=== PATIENT | female | born 1990 | race Caucasian/White ===

== ENCOUNTER 2019-12-26 15:48 | Inpatient (IN) | payer BC, OTHER ==
[2019-12-26] MEDS ORDERED: BUTORPHANOL 1 MG/ML 1 ML VIAL IV PRN (15:53)
[2019-12-26 16:30] LABS: Glucose,Whole Blood 118 mg/dL (75-99)
[2019-12-26] MEDS: DINOPROSTONE 10 MG INSERT.ER VAGINAL ONE ×2 (17:00→17:03)
[2019-12-26] MEDS: INSULIN ASPART (NovoLOG) 100 UNIT/ML VIAL SQ SCH (18:34)
[2019-12-26 18:35] LABS: Glucose,Whole Blood 128 mg/dL (75-99)
[2019-12-27] MEDS ORDERED: CARBOPROST TROMETHAMINE 250 MCG/ML 1 ML AMP IM PRN (05:29)
[2019-12-27] MEDS ORDERED: METHYLERGONOVINE 0.2 MG/ML 1 ML AMP IM PRN (05:29)
[2019-12-27] MEDS ORDERED: OXYTOCIN 10 UNIT/ML 1 ML VIAL IM PRN (05:29)
[2019-12-27] MEDS ORDERED: TERBUTALINE 1 MG/ML VIAL SQ PRN (05:29)
[2019-12-27] MEDS ORDERED: LIDOCAINE 0.5% (PF) 5 MG/ML (50 ML SDV) SQ PRN (05:29)
[2019-12-27] MEDS ORDERED: OXYTOCIN 30 UNITS/500 ML NS 30 UNIT in SALINE 1 500ML.BAG IV SCH (05:30)
[2019-12-27 05:53] LABS: Glucose,Whole Blood 105 mg/dL (75-99)
[2019-12-27] MEDS: LACTATED RINGERS 1,000 ML IV SCH ×3 (06:06→16:04)
[2019-12-27 06:22] LABS: Basophils % (A) 0 %; Eosinophils # (A) 0.1 k/uL (0-0.7); Eosinophils % (A) 1 %; HCT 38.4 % (34.0-46.0); HGB 12.6 gm/dL (11.4-16.0); Hypochromasia Slight; Lymphocytes # (A) 1.6 k/uL (1.0-4.8); Lymphocytes % (A) 19 %; MCH 29.8 pg (25.0-35.0); MCHC 32.8 g/dL (31.0-37.0); MCV 90.8 fL (80.0-100.0); Monocytes # (A) 0.4 k/uL (0-1.0); Monocytes % (A) 5 %; Neutrophils # (A) 6.4 k/uL (1.3-7.7); Neutrophils % (A) 74 %; Platelet Count 226 k/uL (150-450); RBC 4.22 m/uL (3.80-5.40); RDW 15.3 % (11.5-15.5); WBC 8.7 k/uL (3.8-10.6)
[2019-12-27 07:58] LABS: Glucose,Whole Blood 112 mg/dL (75-99)
[2019-12-27 10:02] LABS: Glucose,Whole Blood 96 mg/dL (75-99)
[2019-12-27 12:24] LABS: Glucose,Whole Blood 104 mg/dL (75-99)
[2019-12-27] MEDS ORDERED: SODIUM CHLORIDE 0.9% 100 ML BAG ONE (12:35)
[2019-12-27] MEDS ORDERED: fentaNYL (PF) 50 MCG/ML 5 ML AMP ONE (12:35)
[2019-12-27] MEDS ORDERED: ROPIVACAINE 5MG/ML 20ML VIAL ONE (12:35)
[2019-12-27 14:41] LABS: Glucose,Whole Blood 101 mg/dL (75-99)
[2019-12-27 16:07] LABS: Glucose,Whole Blood 97 mg/dL (75-99)
[2019-12-27 17:16] LABS: Glucose,Whole Blood 91 mg/dL (75-99)
[2019-12-27] MEDS ORDERED: SIMETHICONE 80 MG CHEWABLE PO PRN (20:07)
[2019-12-27] MEDS ORDERED: ZOLPIDEM 5 MG TAB PO PRN (20:07)
[2019-12-27] MEDS ORDERED: LANOLIN CREAM 5 GM TUBE TOPICAL PRN (20:07)
[2019-12-27] MEDS ORDERED: BENZOCAINE/MENTHOL SPRAY 1 GM/SPRAY AEROSOL TOPICAL PRN (20:07)
[2019-12-27] MEDS ORDERED: HYDROCORTISONE 2.5% RECTAL CREAM 30 GM TUBE RECTAL PRN (20:07)
[2019-12-27] MEDS ORDERED: diphenhydrAMINE 50 MG/ML 1 ML VIAL IVP PRN ×2 (20:07)
[2019-12-27] MEDS ORDERED: diphenhydrAMINE 50 MG CAP PO PRN (20:07)
[2019-12-27] MEDS ORDERED: diphenhydrAMINE 25 MG CAP PO PRN (20:07)
[2019-12-27] MEDS ORDERED: ACETAMINOPHEN TAB 325 MG TAB PO PRN (20:07)
[2019-12-27] MEDS ORDERED: OXYTOCIN 20 UNITS/1000 ML NS 1,000 ML IV SCH (20:15)
[2019-12-27] MEDS: IBUPROFEN 600 MG TAB PO PRN (22:16)
[2019-12-27] MEDS: INSULIN ASPART (NovoLOG) 100 UNIT/ML VIAL SQ SCH (23:46)
[2019-12-28 06:52] LABS: Basophils % (A) 0 %; Eosinophils # (A) 0.1 k/uL (0-0.7); Eosinophils % (A) 1 %; HCT 27.5 % (34.0-46.0); Lymphocytes # (A) 1.2 k/uL (1.0-4.8); Lymphocytes % (A) 10 %; MCH 30.5 pg (25.0-35.0); MCV 89.9 fL (80.0-100.0); Mean Platelet Volume 7.6; Monocytes # (A) 0.6 k/uL (0-1.0); Monocytes % (A) 5 %; Neutrophils # (A) 9.9 k/uL (1.3-7.7); Neutrophils % (A) 84 %; Platelet Count 214 k/uL (150-450); RBC 3.06 m/uL (3.80-5.40); RDW 15.4 % (11.5-15.5); WBC 11.8 k/uL (3.8-10.6)
[2019-12-28 06:58] LABS: HGB 9.3 gm/dL (11.4-16.0)
--- NOTE | 2019-12-28 07:42 | P.HPOB ---
History of Present Illness H&P Date: 12/27/19 Chief Complaint: Induction of labor 29-year-old presents at 37 weeks and 6 days for induction of labor. The induction was recommended by maternal medicine. They have been following her with BPP and Dopplers weekly for her gestational diabetes on insulin. This week all of her Doppler levels were elevated and he recommended she be delivered before 38 weeks. Her cervix is 1 cm dilated, 70% effaced, and -2 station. She is not crow. heart tones 135 with moderate variability and reactive. Review of Systems All systems: negative Constitutional: Denies chills, Denies fever Eyes: denies blurred vision, denies pain Ears, nose, mouth and throat: Denies headache, Denies sore throat Cardiovascular: Denies chest pain, Denies shortness of breath Respiratory: Denies cough Gastrointestinal: Denies abdominal pain, Denies diarrhea, Denies nausea, Denies vomiting Genitourinary: Denies dysuria, Denies hematuria Musculoskeletal: Denies myalgias Integumentary: Denies pruritus, Denies rash Neurological: Denies numbness, Denies weakness Psychiatric: Denies anxiety, Denies depression Endocrine: Denies fatigue, Denies weight change Past Medical History Past Medical History: No Reported History Additional Past Medical History / Comment(s): Obstetric history: This is her first and she's had care with me since the first trimester. Blood type is AB+, antibodies negative, rubella immune, hepatitis B negative, RPR nonreactive, GBS negative. She's been followed for gestational diabetes on insulin with maternal- medicine. She is also had some intermittent elevated Dopplers but this weekly Dopplers were elevated in all levels. History of Any Multi-Drug Resistant Organisms: None Reported Additional Past Surgical History / Comment(s): [place] teeth extraction Past Anesthesia/Blood Transfusion Reactions: No Reported Reaction Past Psychological History: No Psychological Hx Reported Smoking Status: Never smoker - Past Family History Father Family Medical History: Asthma Medications and Allergies Home Medications Medication Instructions Recorded Confirmed Type Insulin Aspart [NovoLOG Flexpen] 5 units SQ TID 12/26/19 12/26/19 History Allergies Allergy/AdvReac Type Severity Reaction Status Date / Time No Known Allergies Allergy Verified 12/26/19 15:50 Exam Osteopathic Statement: *. No significant issues noted on an osteopathic structural exam other than those noted in the History and Physical/Consult. Vital Signs Temp Pulse Resp BP 12/28/19 03:37 97.7 F 117 H 18 127/70 12/28/19 00:00 98.7 F 122 H 16 123/88 12/27/19 22:05 108 H 16 140/81 12/27/19 21:35 100 16 146/75 12/27/19 21:05 108 H 16 142/82 12/27/19 20:50 111 H 16 132/71 12/27/19 20:35 120 H 16 143/81 12/27/19 20:20 120 H 16 150/67 12/27/19 20:05 98.2 F 129 H 16 129/58 Intake and Output 12/27/19 12/28/19 12/28/19 22:59 06:59 14:59 Output Total 200 Balance -200 Output: Urine 200 Other: # Voids 2 Heart: Regular rate and rhythm Lungs: Clear to auscultation bilaterally Abdomen: Soft, nontender Extremities: Negative Homans sign Results Result Diagrams: 12/28/19 06:30 Abnormal Lab Results - Last 24 Hours (Table) 12/27/19 12/27/19 12/27/19 Range/Units 07:56 12:17 14:30 WBC (3.8-10.6) k/uL RBC (3.80-5.40) m/uL Hgb (11.4-16.0) gm/dL Hct (34.0-46.0) % Neutrophils # (1.3-7.7) k/uL POC Glucose (mg/dL) 112 H 104 H 101 H (75-99) mg/dL 12/28/19 Range/Units 06:30 WBC 11.8 H (3.8-10.6) k/uL RBC 3.06 L (3.80-5.40) m/uL Hgb 9.3 L D (11.4-16.0) gm/dL Hct 27.5 L (34.0-46.0) % Neutrophils # 9.9 H (1.3-7.7) k/uL POC Glucose (mg/dL) (75-99) mg/dL Assessment and Plan (1) Gestational diabetes Current Visit: Yes Status: Acute Code(s): O24.419 - GESTATIONAL DIABETES MELLITUS IN , UNSP CONTROL SNOMED Code(s): 77663947 (2) Abnormal placenta affecting management of mother Current Visit: Yes Status: Acute Code(s): O43.90 - UNSPECIFIED PLACENTAL DISORDER, UNSPECIFIED TRIMESTER SNOMED Code(s): 24471822 Plan: 1. Induction of labor with amniotomy and Pitocin 2. Monitor blood sugar levels 3. Anticipate normal vaginal delivery
--- NOTE | 2019-12-28 07:44 | P.PROBDLV ---
Vaginal Delivery Note - . Vaginal Delivery Note: 29-year-old presents at 37 weeks and 6 days for induction of labor. The induction was recommended by maternal medicine. They have been following her with BPP and Dopplers weekly for her gestational diabetes on insulin. This week all of her Doppler levels were elevated and he recommended she be delivered before 38 weeks. Her cervix is 1 cm dilated, 70% effaced, and -2 station. She is not crow. heart tones 135 with moderate variability and reactive. Pitocin augmentation was started. Amniotomy performed at 7:20 AM and clear to blood-tinged fluid was noted. She progressed about 3 cm and had some Stadol was comfortable but then when she was 4 cm and did get an epidural. She was comfortable and completely dilated by 1820. She pushed, delivered a viable male infant over intact perineum under epidural anesthesia at 1949. Head del ivered OA, nuchal cord 1 easily reduced, anterior shoulder delivered gentle downward guidance. The posterior shoulder and rest of body. Nose and mouth bulb suctioned, cord clamped and cut, placed on mother's abdomen. Apgars 9, 9, weight 6 lbs. 6 oz. Placenta delivered spontaneously, intact with three- vessel cord at 195. Vagina, cervix, and perineum were inspected. Second- degree midline laceration was repaired with 3-0 Vicryl. Estimated blood loss 300 mL. Mother and baby in stable condition.
--- NOTE | 2019-12-28 07:45 | P.PNOBGVD ---
Subjective - Subjective Principal diagnosis: Status post total vaginal delivery day #1 Interval history: Patient seen and examined. Denies nausea, vomiting, chest pain, shortness of breath or any calf pain. Patient reports: Reports appetite normal, Reports voiding normally, Reports pain well controlled, Reports ambulating normally : doing well Objective - Latest Vital Signs Latest vital signs: Vital Signs Temp Pulse Resp BP 12/28/19 03:37 97.7 F 117 H 18 127/70 12/28/19 00:00 98.7 F 122 H 16 123/88 12/27/19 22:05 108 H 16 140/81 12/27/19 21:35 100 16 146/75 12/27/19 21:05 108 H 16 142/82 12/27/19 20:50 111 H 16 132/71 12/27/19 20:35 120 H 16 143/81 12/27/19 20:20 120 H 16 150/67 12/27/19 20:05 98.2 F 129 H 16 129/58 Intake and Output 12/27/19 12/28/19 12/28/19 22:59 06:59 14:59 Output Total 200 Balance -200 Output: Urine 200 Other: # Voids 2 - Exam Lungs: bilateral: normal Chest: Normal S1, Normal S2 Extremities: Present: normal Abdomen: Present: normal appearance, soft Uterus: Present: normal, firm - Labs Labs: Abnormal Lab Results - Last 24 Hours (Table) 12/27/19 12/27/19 12/27/19 Range/Units 07:56 12:17 14:30 WBC (3.8-10.6) k/uL RBC (3.80-5.40) m/uL Hgb (11.4-16.0) gm/dL Hct (34.0-46.0) % Neutrophils # (1.3-7.7) k/uL POC Glucose (mg/dL) 112 H 104 H 101 H (75-99) mg/dL 12/28/19 Range/Units 06:30 WBC 11.8 H (3.8-10.6) k/uL RBC 3.06 L (3.80-5.40) m/uL Hgb 9.3 L D (11.4-16.0) gm/dL Hct 27.5 L (34.0-46.0) % Neutrophils # 9.9 H (1.3-7.7) k/uL POC Glucose (mg/dL) (75-99) mg/dL Assessment and Plan (1) Gestational diabetes Current Visit: Yes Status: Resolved Code(s): O24.419 - GESTATIONAL DIABETES MELLITUS IN , UNSP CONTROL SNOMED Code(s): 78701534 (2) Abnormal placenta affecting management of mother Current Visit: Yes Status: Resolved Code(s): O43.90 - UNSPECIFIED PLACENTAL DISORDER, UNSPECIFIED TRIMESTER SNOMED Code(s): 90500187 (3) Status post normal vaginal delivery Current Visit: Yes Status: Acute Code(s): GGF9006 - SNOMED Code(s): 582193140 Plan: 1. care 2. consult
[2019-12-28] MEDS: SENNOSIDES-DOCUSATE SODIUM 1 EACH TAB PO SCH ×2 (07:48→20:08)
[2019-12-28] MEDS: IBUPROFEN 600 MG TAB PO PRN ×2 (07:48→20:28)
[2019-12-28 16:40] VITALS: RESP 16
[2019-12-29] MEDS: SENNOSIDES-DOCUSATE SODIUM 1 EACH TAB PO SCH (08:04)
--- NOTE | 2019-12-29 08:31 | P.DS ---
Providers Date of admission: 12/26/19 15:48 Expected date of discharge: 12/29/19 Attending physician: Justina Rai Primary care physician: Stated None - Discharge Diagnosis(es) (1) Gestational diabetes Current Visit: Yes Status: Resolved (2) Abnormal placenta affecting management of mother Current Visit: Yes Status: Resolved (3) Status post normal vaginal delivery Current Visit: Yes Status: Acute Hospital Course: Patient presented for induction of labor. She underwent a normal vaginal delivery. Her course was uncomplicated. She'll be discharged home day #1 in stable condition to follow-up with me in 6 weeks. Plan - Discharge Summary New Discharge Prescriptions: New Ibuprofen [Motrin] 600 mg PO Q6HR PRN #30 tab PRN Reason: Mild Pain Or Fever >= 100.5 Discontinued Insulin Aspart [NovoLOG Flexpen] 5 units SQ TID Discharge Medication List Ibuprofen [Motrin] 600 mg PO Q6HR PRN #30 tab 12/29/19 [Rx] Follow up Appointment(s)/Referral(s): Justina Rai DO [Doctor of Osteopathic Medicine] - 6 Weeks Discharge Disposition: HOME SELF-CARE
[2019-12-29 09:49] VITALS: BP 135/83; PULSE 103; TEMP 98.4
[2019-12-29] MEDS: IBUPROFEN 600 MG TAB PO PRN (11:13)
== END 2019-12-29 11:50 | disposition home or self-care (01) | DRG 807 ==
LOC: 4FBP 15:48
PROVIDERS: ADMIT Obstetrics & Gynecology; ATTEND Obstetrics & Gynecology
PROC: 3E0R3BZ Introduction of Anesthetic Agent into Spinal Canal, Percutaneous Approach (ICD-10-PCS; principal; 2019-12-27)
PROC: 10907ZC Drainage of Amniotic Fluid, Therapeutic from Products of Conception, Via Natural or Artificial Opening (ICD-10-PCS; principal; 2019-12-27)
PROC: 00HU33Z Insertion of Infusion Device into Spinal Canal, Percutaneous Approach (ICD-10-PCS; principal; 2019-12-27)
PROC: 3E033VJ Introduction of Other Hormone into Peripheral Vein, Percutaneous Approach (ICD-10-PCS; principal; 2019-12-27)
PROC: 10E0XZZ Delivery of Products of Conception, External Approach (ICD-10-PCS; principal; 2019-12-27)
DX: O24.424 Gestational diabetes mellitus in childbirth, insulin controlled (principal); Z37.0 Single live birth; O69.81X0 Labor and delivery complicated by cord around neck, without compression, not applicable or unspecified; Z3A.37 37 weeks gestation of pregnancy; Z82.5 Family history of asthma and other chronic lower respiratory diseases
CPT/HCPCS: 85025; 86850; 86900; 86901; 88307

== ENCOUNTER 2020-03-24 17:45 | Emergency (ER) | payer BC ==
[2020-03-24] MEDS ORDERED: SODIUM CHLORIDE 0.9% 1,000 ML IV ONE (18:32)
[2020-03-24 19:01] LABS: Basophils % (A) 1 %; Eosinophils # (A) 0.3 k/uL (0-0.7); Eosinophils % (A) 4 %; HCT 35.8 % (34.0-46.0); HGB 11.9 gm/dL (11.4-16.0); Lymphocytes # (A) 1.3 k/uL (1.0-4.8); Lymphocytes % (A) 21 %; MCH 27.8 pg (25.0-35.0); MCHC 33.3 g/dL (31.0-37.0); MCV 83.5 fL (80.0-100.0); Mean Platelet Volume 7.2; Monocytes # (A) 0.3 k/uL (0-1.0); Monocytes % (A) 5 %; Neutrophils # (A) 4.5 k/uL (1.3-7.7); Neutrophils % (A) 69 %; Platelet Count 267 k/uL (150-450); RBC 4.28 m/uL (3.80-5.40); WBC 6.5 k/uL (3.8-10.6)
[2020-03-24 19:18] LABS: ALT 20 U/L (4-34); AST 59 U/L (14-36); African American GFR (CKD) >90 (>60 ml/min/1.73 sqM); Albumin 4.3 g/dL (3.5-5.0); Alkaline Phosphatase 88 U/L (38-126); Anion Gap 8 mmol/L; Blood Urea Nitrogen 16 mg/dL (7-17); Calcium 9.6 mg/dL (8.4-10.2); Carbon Dioxide 25 mmol/L (22-30); Chloride 106 mmol/L (98-107); Glucose 108 mg/dL (74-99); Magnesium 1.8 mg/dL (1.6-2.3); Non-African American GFR(CKD) >90 (>60 ml/min/1.73 sqM); Potassium 4.3 mmol/L (3.5-5.1); Sodium 139 mmol/L (137-145); Total Bilirubin 0.6 mg/dL (0.2-1.3); Total Protein 7.1 g/dL (6.3-8.2)
[2020-03-24 19:50] LABS: D-Dimer 0.35 mg/L FEU (<0.60); INR 1.2 (<1.2); Partial Thromboplastin Time 23.7 sec (22.0-30.0); Prothrombin Time 12.5 sec (9.0-12.0)
--- NOTE | 2020-03-24 19:58 | XR ---
EXAMINATION TYPE: XR chest 2V DATE OF EXAM: 03/24/2020 COMPARISON: 12/20/2018 HISTORY: Chronic cough TECHNIQUE: 2 views FINDINGS: Heart and mediastinum are normal. Lungs are clear. Diaphragm is normal. Bony thorax appears normal. IMPRESSION: Normal chest. No change.
--- NOTE | 2020-03-24 20:06 | ED ---
Chest Pain HPI - General Chief Complaint: Chest Pain Stated Complaint: Chest pain Time Seen by Provider: 03/24/20 18:13 Source: patient Mode of arrival: ambulatory Limitations: no limitations - History of Present Illness Initial Comments: Patient is a 29-year-old female who presents to emergency department with epigastric chest pain for the past several months. Reports that the symptoms have been present ever since she gave in December. States the pain is most present at night when she lays down to sleep. Will wake her up from sleep. Denies any relation to food intake. No ripping or tearing sensation to her back. Has not taken any medications for her symptoms. Denies provocation with food intake. No fevers or chills. Admits to nausea without vomiting. Denies any changes in her bowel or bladder habits. Denies history of DVT or PE. No calf pain or swelling. No family history of premature cardiac . Does admit to associated shortness of breath. No other alleviating, precipitating or modifying factors - Related Data Previous Rx's Medication Instructions Recorded Ibuprofen [Motrin] 600 mg PO Q6HR PRN #30 tab 12/29/19 Allergies Allergy/AdvReac Type Severity Reaction Status Date / Time No Known Allergies Allergy Verified 12/26/19 15:50 Review of Systems ROS Statement: Those systems with pertinent positive or pertinent negative responses have been documented in the HPI. ROS Other: All systems not noted in ROS Statement are negative. EKG Findings - EKG Comments: EKG Findings:: EKG demonstrates a normal sinus rhythm with a ventricular rate of 84. WV interval 156. QRS 92. QTC of 420. Q wave in lead 3. No acute ST segment elevations or depressions. No signs of Nhqlj-Eddftfnht-Czzbf or Brugada syndrome. Past Medical History Past Medical History: No Reported History Additional Past Medical History / Comment(s): Obstetric history: This is her first and she's had care with me since the first trimester. Blood type is AB+, antibodies negative, rubella immune, hepatitis B negative, RPR nonreactive, GBS negative. She's been followed for gestational diabetes on insulin with maternal- medicine. She is also had some intermittent elevated Dopplers but this weekly Dopplers were elevated in all levels. History of Any Multi-Drug Resistant Organisms: None Reported Additional Past Surgical History / Comment(s): [place] teeth extraction Past Anesthesia/Blood Transfusion Reactions: No Reported Reaction Past Psychological History: No Psychological Hx Reported Smoking Status: Former smoker Past Alcohol Use History: Rare Past Drug Use History: None Reported - Past Family History Father Family Medical History: Asthma General Exam Limitations: no limitations General appearance: alert, in no apparent distress Head exam: Present: atraumatic, normocephalic, normal inspection Eye exam: Present: normal appearance, PERRL, EOMI. Absent: scleral icterus, conjunctival injection, periorbital swelling ENT exam: Present: normal exam, mucous membranes moist Neck exam: Present: normal inspection. Absent: tenderness, meningismus, lymphadenopathy Respiratory exam: Present: normal lung sounds bilaterally. Absent: respiratory distress, wheezes, rales, rhonchi, stridor Cardiovascular Exam: Present: regular rate, normal rhythm, normal heart sounds. Absent: systolic murmur, diastolic murmur, rubs, gallop, clicks GI/Abdominal exam: Present: soft, tenderness (epigastric), normal bowel sounds. Absent: distended, guarding, rebound, rigid Extremities exam: Present: normal inspection, full ROM, normal capillary refill. Absent: tenderness, pedal edema, joint swelling, calf tenderness Back exam: Present: normal inspection Neurological exam: Present: alert, oriented X3, CN II-XII intact Psychiatric exam: Present: normal affect, normal mood Skin exam: Present: warm, dry, intact, normal color. Absent: rash Course Vital Signs 03/24/20 03/24/20 03/24/20 17:48 21:00 21:43 Temperature 97.9 F 98.2 F 98.0 F Pulse Rate 92 84 89 Respiratory 18 19 18 Rate Blood Pressure 147/97 122/84 126/80 O2 Sat by Pulse 100 98 98 Oximetry Chest Pain MDM - MDM Upon arrival patient is placed into room 10. A thorough history and physical exam was performed. As patient is reporting to chest pain we did place on continuous pulse ox and cardiac monitoring. 12-lead EKG was performed. Laboratory studies were conducted. D-dimer is negative at 0.35. Troponin is negative. HCG is negative. Chest x-ray demonstrates no acute findings. Ultrasound is performed which demonstrates multiple gallstones without signs of cholecystitis. I did discuss results with the patient. I recommended a low-fat diet. Patient was given follow-up information for Dr. wilson. Call to make an appointment. Return to the emergency room for any new or worsening symptoms. Patient was in agreement with this plan and discharged home stable condition Disposition Clinical Impression: Epigastric pain, Gallstones Disposition: HOME SELF-CARE Condition: Stable Instructions (If sedation given, give patient instructions): Gallstones (ED) Additional Instructions: Please follow-up with your primary care doctor. Return to the emergency room for any new or worsening symptoms. I did recommend that you see the surgeon in regards to your gallstones Is patient prescribed a controlled substance at d/c from ED?: No Referrals: Wilbert Lam DO [Primary Care Provider] - 1-2 days Oral Wilson DO [Doctor of Osteopathic Medicine] - 1-2 days Time of Disposition: 21:13
--- NOTE | 2020-03-24 20:49 | US ---
EXAMINATION TYPE: US gallbladder DATE OF EXAM: 03/24/2020 COMPARISON: NONE CLINICAL HISTORY: abd pain. EXAM MEASUREMENTS: Liver Length: 15.0 cm Gallbladder Wall: 0.3 cm CBD: 0.3 cm Right Kidney: 13.1 x 4.3 x 5.2 cm Pancreas: Tail obscured by overlying bowel gas Liver: wnl Gallbladder: mobile stones, no wall thickening Evidence for sonographic Dominguez's sign: no CBD: wnl Right Kidney: Inferior pole obscured by overlying bowel gas, measures large IMPRESSION: There are multiple small gallstones. No dilated ducts. No focal liver defect.
[2020-03-24 21:53] VITALS: BP 126/80; PULSE 89; RESP 18; TEMP 98
== END 2020-03-24 21:43 | disposition home or self-care (01) ==
LOC: EC 17:45
DX: K80.20 Calculus of gallbladder without cholecystitis without obstruction (principal); Z87.891 Personal history of nicotine dependence
CPT/HCPCS: 36415; 71046; 76705; 80053; 81025; 83690; 83735; 84484; 85025; 85379; 85610; 85730; 93005; 96360; 96361; 99285

== ENCOUNTER 2022-09-24 15:45 | Inpatient (IN) | payer BC ==
[2022-09-24 17:15] LABS: Appearance,Urine Clear (Clear); Bilirubin,Urine Negative (Negative); Blood,Urine Negative (Negative); Color,Urine Light Yellow; Glucose,Urine (UA) Negative (Negative); Ketones,Urine Negative (Negative); Leukocyte Esterase,Urine Negative (Negative); Nitrite,Urine Negative (Negative); Protein,Urine Negative (Negative); Specific Gravity,Urine 1.007 (1.001-1.035); Urobilinogen,Urine <2.0 mg/dL (<2.0)
[2022-09-24 17:33] LABS: Creatinine,Urine Random 33.2 mg/dL; Protein/Creatinine Ratio,Urine 0.361
[2022-09-24 17:41] LABS: Basophils % (A) 0 %; Eosinophils # (A) 0.1 k/uL (0-0.7); Eosinophils % (A) 1 %; HCT 37.2 % (34.0-46.0); HGB 12.2 gm/dL (11.4-16.0); Lymphocytes # (A) 1.6 k/uL (1.0-4.8); Lymphocytes % (A) 18 %; MCH 29.1 pg (25.0-35.0); MCHC 32.7 g/dL (31.0-37.0); MCV 88.9 fL (80.0-100.0); Monocytes # (A) 0.4 k/uL (0-1.0); Monocytes % (A) 4 %; Neutrophils # (A) 6.8 k/uL (1.3-7.7); Neutrophils % (A) 76 %; Platelet Count 208 k/uL (150-450); RBC 4.19 m/uL (3.80-5.40); RDW 15.5 % (11.5-15.5)
[2022-09-24 17:51] LABS: ALT 15 U/L (4-34); AST 18 U/L (14-36); African American GFR (CKD) >90 (>60 ml/min/1.73 sqM); Blood Urea Nitrogen 8 mg/dL (7-17); LDH 163 U/L (120-246); Non-African American GFR(CKD) >90 (>60 ml/min/1.73 sqM); Uric Acid 3.3 mg/dL (3.7-7.4)
[2022-09-24] MEDS ORDERED: LABETALOL 5 MG/ML VIAL MDV IVP PRN ×2 (18:15)
[2022-09-24] MEDS ORDERED: hydrALAZINE HCL 20 MG/ML 1 ML VIAL IVP PRN (18:15)
[2022-09-24] MEDS ORDERED: MAGNESIUM SULFATE-WATER PMX 4 GM in WATER FOR INJECTION 1 100ML.BAG IVPB ONE (18:17)
[2022-09-24] MEDS ORDERED: CALCIUM GLUCONATE 1 GM/10 ML VIAL IV PRN (18:17)
[2022-09-24] MEDS ORDERED: TRANEXAMIC ACID IN NACL,ISO-OS 1,000 MG in EMPTY BAG 1 BAG IV PRN (18:19)
[2022-09-24] MEDS ORDERED: OXYTOCIN 10 UNIT/ML 1 ML VIAL IM PRN (18:19)
[2022-09-24] MEDS ORDERED: LIDOCAINE 0.5% (PF) 5 MG/ML (50 ML SDV) SQ PRN (18:19)
[2022-09-24] MEDS ORDERED: CARBOPROST TROMETHAMINE 250 MCG/ML 1 ML AMP IM PRN (18:19)
[2022-09-24] MEDS ORDERED: AMPICILLIN 2,000 MG in SODIUM CHLORIDE 0.9% 100 ML IVPB STA (18:19)
[2022-09-24] MEDS ORDERED: TERBUTALINE 1 MG/ML VIAL SQ PRN (18:19)
[2022-09-24] MEDS ORDERED: miSOPROStoL 200 MCG TAB PO PRN (18:19)
[2022-09-24] MEDS: LABETALOL 5 MG/ML VIAL MDV IVP PRN ×2 (18:20→18:24)
[2022-09-24] MEDS ORDERED: OXYTOCIN 30 UNITS/500 ML NS 30 UNIT in SALINE 1 500ML.BAG IV SCH (18:30)
[2022-09-24] MEDS ORDERED: BETAMET ACET-BETAMETH SOD PHOS 6 MG/ML MDV IM SCH (18:30)
[2022-09-24 18:32] LABS: Glucose,Whole Blood 100 mg/dL (70-110)
[2022-09-24] MEDS: AMPICILLIN 1,000 MG in SODIUM CHLORIDE 0.9% 50 ML IVPB SCH ×3 (19:00→22:46)
--- NOTE | 2022-09-24 19:34 | P.HPOB ---
History of Present Illness H&P Date: 09/24/22 Chief Complaint: Hypertension in This patient is a 31-year-old 2 para 1 female estimated date of confinement 10/20/2022 estimated gestational age 36-2/7 weeks who was seen in the office today by the OB nurse and was noted to have elevated blood pressure 140/100. Patient's care is per Dr. Rai. She is also been followed sporadically (due to patient noncompliance) by maternal medicine. is complicated by gestational diabetes. Apparently her blood sugars have not been optimal and she was placed on metformin. Dr. Dunn indicates that he ideally would like her on insulin however he did not feel that this was something she could achieve. Patient complains of headaches and nausea and heartburn. She's been noncompliant with doing her biophysical profiles and nonstress tests. She also has had low amniotic fluid. Most recent amniotic fluid was 5.9. Patient reports swelling in her feet. Blood pressures here in labor and delivery ranged from 140/92-171/90. She is also had multiple blood pressures with systolic greater than 160 and diastolic greater than 100. Preeclampsia labs were normal with the exception of elevated PC ratio. I discussed this patient with Dr. Jacob/maternal medicine and he is recommended to proceed with delivery secondary to preeclampsia with severe features. He did recommend giving her Celestone but not waiting on the induction so we'll proceed with that now. Review of Systems Constitutional: Reports as per HPI Genitourinary: Reports Menstruation: Reports amenorrhea Past Medical History Past Medical History: No Reported History Additional Past Medical History / Comment(s): Patient had a previous vaginal delivery was induced due to hypertension and elevated umbilical Dopplers. History of Any Multi-Drug Resistant Organisms: None Reported Past Surgical History: Cholecystectomy Additional Past Surgical History / Comment(s): [place] teeth extraction Past Anesthesia/Blood Transfusion Reactions: No Reported Reaction Past Psychological History: No Psychological Hx Reported Smoking Status: Former smoker Past Alcohol Use History: Rare Past Drug Use History: None Reported - Past Family History Father Family Medical History: Asthma Medications and Allergies Allergies Allergy/AdvReac Type Severity Reaction Status Date / Time No Known Allergies Allergy Verified 12/26/19 15:50 Exam Intake and Output 09/24/22 09/24/22 09/24/22 06:59 14:59 22:59 Other: Weight 100.698 kg - OBG Physical Exam Abdomen: bowel sounds normal, no diffuse tenderness, no bruit present, no guarding noted, no hepatomegaly, no splenomegaly, no mass Vulva: both: normal Vagina: normal moisture, no discharge Cervix: no lesion (Cervix 2-3 cm dilated soft but thick), no discharge Uterus: enlarged Results labs show she is AB+, rubella immune, RPR nonreactive, hepatitis B is negative, HIV is nonreactive, group B strep was positive. Result Diagrams: 09/24/22 17:20 09/24/22 17:20 Abnormal Lab Results - Last 24 Hours (Table) 09/24/22 Range/Units 17:20 Creatinine 0.38 L (0.52-1.04) mg/dL Uric Acid 3.3 L (3.7-7.4) mg/dL Assessment and Plan Assessment: This is a 31-year-old 2 para 1 female 36-2/7 weeks gestation with preeclampsia and severe features. Patient also has probable uncontrolled diabetes and is noncompliant with her testing. I discussed management of this patient with maternal medicine and they recommended proceed at this time with delivery. They're recommending Celestone, closed glucose monitoring, magnesium sulfate, and induction of labor. I explained this to the patient and she wishes to proceed. Plan is antibiotic prophylaxis, Pitocin, magnesium sulfate, and hypertensive treatment. (1) 36 to 37 weeks gestation of Current Visit: Yes Status: Acute Code(s): LXM8073 - SNOMED Code(s): 011290654 (2) Pre-eclampsia, severe Current Visit: Yes Status: Acute Code(s): O14.10 - SEVERE PRE-ECLAMPSIA, UNSPECIFIED TRIMESTER SNOMED Code(s): 75757147 (3) Non-compliance Current Visit: Yes Status: Acute Code(s): Z91.199 - PT NONCOMPL WITH OTHER MED TRTMT AND REGIMEN D/T UNSP REASON SNOMED Code(s): 1228581 (4) Gestational diabetes Current Visit: No Status: Resolved Code(s): O24.419 - GESTATIONAL DIABETES MELLITUS IN , UNSP CONTROL SNOMED Code(s): 90015805 (5) Group B streptococcal carriage complicating Current Visit: Yes Status: Acute Code(s): O99.820 - STREPTOCOCCUS B CARRIER STATE COMPLICATING SNOMED Code(s): 111181445388914
[2022-09-24] MEDS: MAGNESIUM SULFATE-WATER PMX 20 GM in WATER FOR INJECTION 1 500ML.BAG IV SCH (19:47)
[2022-09-24 20:10] LABS: Glucose,Whole Blood 121 mg/dL (70-110)
[2022-09-24] MEDS: BUTORPHANOL 1 MG/ML 1 ML VIAL IV PRN ×2 (21:50→23:39)
[2022-09-24 21:59] LABS: Glucose,Whole Blood 126 mg/dL (70-110)
[2022-09-24] MEDS ORDERED: ROPIVACAINE 5 MG/ML 20 ML AMPULE ONE (23:53)
[2022-09-24] MEDS ORDERED: SODIUM CHLORIDE 0.9% 100 ML BAG ONE (23:53)
[2022-09-24] MEDS ORDERED: fentaNYL (PF) 50 MCG/ML 5 ML AMP ONE (23:53)
[2022-09-25 00:41] LABS: Glucose,Whole Blood 192 mg/dL (70-110)
[2022-09-25] MEDS ORDERED: ZOLPIDEM 5 MG TAB PO PRN (02:05)
[2022-09-25] MEDS ORDERED: BENZOCAINE/MENTHOL SPRAY 1 GM/SPRAY AEROSOL TOPICAL PRN (02:05)
[2022-09-25] MEDS ORDERED: bisacodyL 10 MG SUPP RECTAL PRN (02:05)
[2022-09-25] MEDS ORDERED: SIMETHICONE 80 MG CHEWABLE PO PRN (02:05)
[2022-09-25] MEDS ORDERED: diphenhydrAMINE 25 MG CAP PO PRN (02:05)
[2022-09-25] MEDS ORDERED: diphenhydrAMINE 50 MG/ML 1 ML VIAL IVP PRN (02:05)
[2022-09-25] MEDS ORDERED: HYDROCORTISONE 2.5% RECTAL CREAM 30 GM TUBE RECTAL PRN (02:05)
[2022-09-25] MEDS ORDERED: LANOLIN CREAM 5 GM TUBE TOPICAL PRN (02:05)
[2022-09-25] MEDS ORDERED: CITRIC ACID-SODIUM CITRATE 15 ML CUP PO ONE (02:07)
--- NOTE | 2022-09-25 02:12 | P.PROBDLV ---
Vaginal Delivery Note - . Vaginal Delivery Note: Normal vaginal delivery viable male infant Apgars 8 and 9 delivery time is 0144 hours. Please see dictated H&P for intimate details of this patient's admission. In brief summary this is a pleasant 31-year-old 2 para 1 female 36-2/7 weeks gestation who is admitted to labor and delivery from the office for elevated blood pressures. Patient is found to have preeclampsia with severe features and after consultation with maternal- medicine the decision was to proceed with Celestone administration and induction of labor. Patient is given a dose of Celestone and magnesium sulfate is begun as well. She also was given ampicillin due to positive group B strep culture. She is artificial rupture membranes at 2 cm dilated. Labor is induced with Pitocin. She does get 1 dose of Stadol and then at 6 cm dilated does get an epidural for pain control. Isabelle ent thereafter progresses quickly gets to complete. She pushes for approximately 15 minutes pushed the head to the perineum. Posterior perineum was supported we have controlled delivery of infant's head over the intact perineum. Mouth and nares are bulb suctioned. It is straight occiput anterior presentation. With gentle downward traction we then have deliver the anterior and posterior shoulder and rest this infant's body. This is a vigorous viable male infant Apgars are 8 and 9 delivery time is 0144 hours. The infant is laid on the mother's abdomen. The umbilical cord is doubly clamped and cut appears to be trivascular. The placenta is then spontaneously delivered intact. Estimated blood loss is approximately 150 mL. Is a small first-degree lacerations repaired with 3-0 Vicryl usual fashion. Excellent reapproximation is noted. This time I did replace the Ruffin catheter so we can monitor I's and O's until later today. Mother and are stable delivery room. All counts correct 3. There are no complications.
[2022-09-25] MEDS ORDERED: OXYTOCIN 30 UNITS/500 ML NS 30 UNIT in SALINE 1 500ML.BAG IV SCH (02:15)
[2022-09-25] MEDS: IBUPROFEN 600 MG TAB PO PRN ×2 (05:35→19:37)
[2022-09-25] MEDS: MAGNESIUM SULFATE-WATER PMX 20 GM in WATER FOR INJECTION 1 500ML.BAG IV SCH ×2 (05:45→16:42)
[2022-09-25] MEDS: LABETALOL 100 MG TAB PO SCH ×3 (07:20→20:40)
[2022-09-25] MEDS: SENNOSIDES-DOCUSATE SODIUM 1 EACH TAB PO SCH ×2 (08:41→19:38)
[2022-09-25] MEDS: ACETAMINOPHEN TAB 325 MG TAB PO PRN (12:53)
[2022-09-26] MEDS: MAGNESIUM SULFATE-WATER PMX 20 GM in WATER FOR INJECTION 1 500ML.BAG IV SCH (03:21)
[2022-09-26 07:36] LABS: Basophils % (A) 0 %; Eosinophils # (A) 0.1 k/uL (0-0.7); Eosinophils % (A) 1 %; HCT 31.6 % (34.0-46.0); HGB 10.5 gm/dL (11.4-16.0); Lymphocytes # (A) 1.7 k/uL (1.0-4.8); Lymphocytes % (A) 17 %; MCHC 33.3 g/dL (31.0-37.0); MCV 90.2 fL (80.0-100.0); Mean Platelet Volume 7.6; Monocytes # (A) 0.4 k/uL (0-1.0); Monocytes % (A) 4 %; Neutrophils # (A) 7.6 k/uL (1.3-7.7); Neutrophils % (A) 76 %; Platelet Count 217 k/uL (150-450); RDW 15.5 % (11.5-15.5); WBC 9.9 k/uL (3.8-10.6)
[2022-09-26] MEDS: IBUPROFEN 600 MG TAB PO PRN (07:58)
[2022-09-26] MEDS: SENNOSIDES-DOCUSATE SODIUM 1 EACH TAB PO SCH ×2 (07:59→20:41)
[2022-09-26] MEDS: LABETALOL 100 MG TAB PO SCH ×2 (08:10→20:41)
--- NOTE | 2022-09-26 08:54 | P.DS ---
Providers Date of admission: 09/24/22 18:12 Expected date of discharge: 09/26/22 Attending physician: Justina Rai Primary care physician: Stated None Hospital Course: This is a 31-year-old female 2 para 1 at 36-2/7 weeks who presented from the office with elevated blood pressures. Her was also complicated by gestational diabetes with poor control. Please see history and physical for details of admission. Essentially the patient was induced due to preeclampsia and delivered vaginally a viable male with scores of 8 at 1 minute and 9 at 5 minutes and weight of 6 lbs. 6 oz. on 09/25/2022. She was continued on magnesium sulfate seizure prophylaxis for 24 hours after delivery. Her blood pressures have been stable. She is currently on labetalol 100 mg twice a day. She denies any other symptoms. Bleeding has been minimal. She is bottle feeding. Vital signs are stable. Abdomen is soft with fundus firm and nontender. Extremities show negative Homans. Impression is status post vaginal delivery day #1, preeclampsia-status post magnesium sulfate seizure prophylaxis, gestational diabetes. Plan is to discharge home today. Routine instructions are given. She is advised to follow up with Dr. Rai in the office in approximately one week for a blood pressure check. She will continue on labetalol 100 mg twice a day. She will be given a prescription for ibuprofen as needed for pain. She is advised to call the office if she has any further questions or concerns prior to her appointment time. Procedures: Oxytocin induction of labor Spontaneous vaginal delivery of a viable male infant on 09/25/2022 Patient Condition at Discharge: Stable Plan - Discharge Summary New Discharge Prescriptions: New Ibuprofen [Motrin] 600 mg PO Q6HR PRN #60 tab PRN Reason: Mild Pain (Scale 1 To 3) Labetalol [Trandate] 100 mg PO BID #60 tab Discharge Medication List Ibuprofen [Motrin] 600 mg PO Q6HR PRN #60 tab 09/26/22 [Rx] Labetalol [Trandate] 100 mg PO BID #60 tab 09/26/22 [Rx] Follow up Appointment(s)/Referral(s): Justina Rai DO [Doctor of Osteopathic Medicine] - 11/03/22 3:45 pm (Follow up for blood pressure check in [address] Rai) Activity/Diet/Wound Care/Special Instructions: Instructions 1. Do not begin any exercise program for 3 weeks. 2. Do not resume sexual relations for 3 weeks or longer if uncomfortable. 3. You may take tub baths or showers at any time. 4. You may use tampons if desired after 3 weeks. 5. Keep the area of episiotomy (stitches) clean and dry. 6. If you are not nursing, wear a good fitting, supportive bra during the day and limit fluid intake for at least 1 week to prevent breast engorgement. 7. Call the office, [phone], within the next week to make appointment for your 6 week checkup if it has not already been made. 8. Report any of the following occurrences to the doctor promptly: a. Heavy, excessive bleeding b. Chills, fever c. Burning or frequency of urination d. Pain or redness and breasts if nursing e. Increasing pain or swelling in episiotomy (stitches). In addition to the above instructions, the following additional should be followed: 1. No heavy lifting or straining (exercising) until after 6 week checkup. 2. Keep abdominal incision clean and dry: You may wear a dressing if more comfortable. 3. Make office appointment for 10 days after going home or as instructed by her doctor. Discharge Disposition: HOME SELF-CARE
[2022-09-26] MEDS: ACETAMINOPHEN TAB 325 MG TAB PO PRN ×2 (13:00→20:41)
[2022-09-26 16:32] VITALS: RESP 16
[2022-09-27] MEDS: IBUPROFEN 600 MG TAB PO PRN (07:51)
[2022-09-27] MEDS: LABETALOL 100 MG TAB PO SCH (07:52)
[2022-09-27] MEDS: SENNOSIDES-DOCUSATE SODIUM 1 EACH TAB PO SCH (07:53)
[2022-09-27 08:44] VITALS: BP 135/90; PULSE 84; TEMP 98.1
== END 2022-09-27 13:12 | disposition home or self-care (01) | DRG 807 ==
LOC: FBPOP 15:45 → 4FBP 18:12
PROVIDERS: ADMIT Obstetrics & Gynecology; ATTEND Obstetrics & Gynecology
PROC: 0HQ9XZZ Repair Perineum Skin, External Approach (ICD-10-PCS; principal; 2022-09-25)
PROC: 10907ZC Drainage of Amniotic Fluid, Therapeutic from Products of Conception, Via Natural or Artificial Opening (ICD-10-PCS; principal; 2022-09-25)
PROC: 10E0XZZ Delivery of Products of Conception, External Approach (ICD-10-PCS; principal; 2022-09-25)
PROC: 3E0DXGC Introduction of Other Therapeutic Substance into Mouth and Pharynx, External Approach (ICD-10-PCS; principal; 2022-09-25)
DX: O24.429 Gestational diabetes mellitus in childbirth, unspecified control (principal); Z37.0 Single live birth; Z3A.36 36 weeks gestation of pregnancy; O14.14 Severe pre-eclampsia complicating childbirth; O70.0 First degree perineal laceration during delivery; O99.824 Streptococcus B carrier state complicating childbirth; Z87.891 Personal history of nicotine dependence; Z91.199 Patient's noncompliance with other medical treatment and regimen due to unspecified reason; Z28.21 Immunization not carried out because of patient refusal; Z28.310 Unvaccinated for COVID-19
CPT/HCPCS: 59025; 81003; 82565; 82570; 83615; 84156; 84450; 84460; 84520; 84550; 85025; 86850; 86900; 86901; 88307; 99215

== ENCOUNTER → 2022-11-30 | Outpatient (CLI) | payer BC ==
[2022-11-30 19:57] LABS: Basophils # (A) 0.02 X 10*3/uL; Basophils % (A) 0.3 %; Eosinophils % (A) 1.4 %; HCT 41.7 %; HGB 12.9 d/dL; Lymphocytes # (A) 2.02 X 10*3/uL; Lymphocytes % (A) 28.8 %; MCH 27.7 pg; MCHC 30.9 d/dL; MCV 89.5 FL; Mean Platelet Volume 9.8 FL; Monocytes # (A) 0.47 X 10*3/uL; Monocytes % (A) 6.7 %; NRBC Per 100 WBC 0 X 10*3/uL; Neutrophils # (A) 4.38 X 10*3/uL; Neutrophils % (A) 62.5 %; Platelet Count 288 X 10*3/uL; RBC 4.66 X 10*6/uL; RDW 14.9 %; WBC 7.01 X 10*3/uL
== END | disposition home or self-care (01) ==
LOC: LABPAT 11:33
PROVIDERS: ATTEND Obstetrics & Gynecology
DX: Z01.812 Encounter for preprocedural laboratory examination (principal)
CPT/HCPCS: 36415; 85025

== ENCOUNTER 2022-12-01 06:13 | Day surgery (SDC) | payer BC ==
[2022-11-30 08:43] VITALS: BMI 38.0
--- NOTE | 2022-11-30 16:38 | P.HPOB ---
History of Present Illness H&P Date: 11/30/22 Chief Complaint: family planning 32 year old presents for laparoscopic tubal ligation. Review of Systems All systems: negative Constitutional: Denies chills, Denies fever Eyes: denies blurred vision, denies pain Ears, nose, mouth and throat: Denies headache, Denies sore throat Cardiovascular: Denies chest pain, Denies shortness of breath Respiratory: Denies cough Gastrointestinal: Denies abdominal pain, Denies diarrhea, Denies nausea, Denies vomiting Genitourinary: Denies dysuria, Denies hematuria Musculoskeletal: Denies myalgias Integumentary: Denies pruritus, Denies rash Neurological: Denies numbness, Denies weakness Psychiatric: Denies anxiety, Denies depression Endocrine: Denies fatigue, Denies weight change Past Medical History Past Medical History: Hypertension Additional Past Medical History / Comment(s): Patient had a previous vaginal delivery was induced due to hypertension and elevated umbilical Dopplers. History of Any Multi-Drug Resistant Organisms: None Reported Past Surgical History: Cholecystectomy Additional Past Surgical History / Comment(s): [place] teeth extraction Past Anesthesia/Blood Transfusion Reactions: No Reported Reaction Smoking Status: Former smoker - Past Family History Father Family Medical History: Asthma Medications and Allergies Home Medications Medication Instructions Recorded Confirmed Type Labetalol [Trandate] 100 mg PO BID 11/30/22 11/30/22 History Allergies Allergy/AdvReac Type Severity Reaction Status Date / Time No Known Allergies Allergy Verified 11/30/22 08:32 Exam Osteopathic Statement: *. No significant issues noted on an osteopathic structural exam other than those noted in the History and Physical/Consult. Intake and Output 11/30/22 11/30/22 11/30/22 06:59 14:59 22:59 Other: Weight 94.347 kg HEart: RRR Lungs: CTAB Abdomen: soft, nontender Extremeties: neg linda's Assessment and Plan (1) Family planning Status: Acute Code(s): Z30.09 - ENCOUNTER FOR OTH GENERAL CNSL AND ADVICE ON CONTRACEPTION SNOMED Code(s): 606115762 Plan: 1. laparoscopic tubal ligation
[~2022-12-01 06:13] MED LIST: LACTATED RINGERS 1,000 ML IV SCH; Pre Op ABX Message 1 EACH MISC MISCELLANE ONE
[2022-12-01] MEDS ORDERED: LIDOCAINE 1% (10MG/ML) FOR IV START INTRADERMA ONE (06:53)
[2022-12-01] MEDS ORDERED: ONDANSETRON 4 MG/2 ML VIAL ONE (06:55)
[2022-12-01] MEDS ORDERED: DEXAMETHASONE SOD PHOSPHATE 4 MG/ML 1 ML VIAL IV ONE (06:58)
[2022-12-01] MEDS ORDERED: ONDANSETRON 4 MG/2 ML VIAL IVP ONE (06:59)
[2022-12-01] MEDS ORDERED: SUCCINYLCHOLINE CHLORIDE 200 MG/10 ML VIAL IV ONE (07:30)
[2022-12-01] MEDS ORDERED: PROPOFOL 10 MG/ML 20 ML VIAL IV ONE (07:30)
[2022-12-01] MEDS ORDERED: MIDAZOLAM 2 MG/2 ML VIAL ONE (07:30)
[2022-12-01] MEDS ORDERED: fentaNYL (PF) 50 MCG/ML 2 ML AMP ONE (07:30)
[2022-12-01] MEDS ORDERED: LIDOCAINE 2% INJ 20 MG/ML (2 ML VIAL) ONE (07:30)
[2022-12-01] MEDS ORDERED: ROCURONIUM 10 MG/ML (5 ML VIAL) IV ONE (07:30)
[2022-12-01] MEDS ORDERED: GLYCOPYRROLATE 0.2 MG/ML 2 ML VIAL ONE (07:30)
[2022-12-01] MEDS ORDERED: KETOROLAC 15 MG/ML 1 ML VIAL ONE (07:30)
[2022-12-01] MEDS ORDERED: NEOSTIGMINE 1 MG/ML 10 ML VIAL ONE (07:30)
[2022-12-01] MEDS ORDERED: BUPIVACAINE (PF) 0.25% 30 ML VIAL SQ ONE ×2 (08:05→08:10)
--- NOTE | 2022-12-01 08:28 | P.OP ---
Date of Procedure: 12/01/22 Preoperative Diagnosis: 1. family planning Postoperative Diagnosis: 1. family planning Procedure(s) Performed: Laparoscopic tubal ligation Anesthesia: SHASHANK Surgeon: Justina Rai Estimated Blood Loss (ml): 5 IV fluids (ml): 500 Urine output (ml): 50 Pathology: none sent Condition: stable Disposition: PACU Operative Findings: Uterus sounded to 11 cm. Normal uterus, tubes, ovaries. Description of Procedure: Patient was taken to the operating room where general anesthesia was obtained without difficulty. She was prepped and draped in normal sterile fashion in the dorsal lithotomy position, legs placed in the Sunny stirrups. Bladder drained of all urine. Haywood speculum placed in the vagina and the anterior lip the cervix was grasped with single-tooth tenaculum. The uterus is sounded to 11 cm and the kroner manipulator was placed. Attention was then turned to the abdomen and gloves were changed. A 10 mm infraumbilical incision was made the scalpel and 10 mm optical trocar was placed under direct visualization. A 5 mm suprapubic Incision was made and a 5 mm optical trocar was placed under direct visualization. Survey of the pelvis revealed normal uterus tubes and ovaries. The left fallopian tube was grasped with a Kleppinger and fulgurated 2-3 cm on this side in the ampullar portion. The right fallopian tube was grasped with a Kleppinger and fulgurated 2-3 cm in the ampullar portion. All instruments were then removed from the abdomen and vagina. The 10 mm infraumbilical incision was closed with 0 Vicryl and the fascial layer and then 4-0 Vicryl in a subcuticular fashion. The 5 mm incision was closed with 4-0 Vicryl in a subcuticular fashion. Patient tolerated procedure well, sponge and instrument counts correct 2 and she was taken to recovery room in stable condition.
[2022-12-01 08:36] VITALS: TEMP 98.1
[2022-12-01] MEDS: HYDROmorphone 0.5 MG/0.5 ML SYRINGE IVP ONE ×2 (08:46→08:58)
[2022-12-01 10:16] VITALS: RESP 16
[2022-12-01] MEDS ORDERED: Acetaminophen-Codeine 300-30mg TAB ONE (10:18)
[2022-12-01 11:24] VITALS: BP 108/77; PULSE 83
== END 2022-12-01 11:15 | disposition home or self-care (01) ==
LOC: OR 06:13
PROVIDERS: ATTEND Obstetrics & Gynecology
DX: Z30.2 Encounter for sterilization (principal); I10 Essential (primary) hypertension; K21.9 Gastro-esophageal reflux disease without esophagitis; J45.909 Unspecified asthma, uncomplicated; Z90.49 Acquired absence of other specified parts of digestive tract; Z87.891 Personal history of nicotine dependence; Z79.899 Other long term (current) drug therapy; Z88.8 Allergy status to other drugs, medicaments and biological substances
CPT/HCPCS: 81025; 58670; J2250; J0330; J1100; J2710; J2405; J3010; J1885; J2704; J1170; J2001